=== PATIENT | female | born 1980 | race Caucasian/White ===

== ENCOUNTER 2019-01-22 08:54 | Emergency (ER) | payer OTHER ==
[~2019-01-22] VITALS: Ht 157.5 cm; Wt 90.7 kg
[2019-01-22 09:10] VITALS: BP 148/91; Ht 157.5 cm; Wt 90.7 kg
== END 2019-01-22 10:14 | disposition home or self-care (01) ==
LOC: ED 08:54
DX: G44.209 Tension-type headache, unspecified, not intractable (principal); F17.200 Nicotine dependence, unspecified, uncomplicated
CPT/HCPCS: 99406